=== PATIENT | female | born 1980 | race Caucasian/White ===

== ENCOUNTER 2017-11-01 19:29 | Emergency (ER) | payer OTHER ==
[~2017-11-01] VITALS: Ht 170.2 cm; Wt 63.5 kg
[~2017-11-01 19:29] MED LIST: LORA-259 PO; OXYC-128 PO; [UNRECOGNIZED DRUG - REMARK]
[2017-11-01 19:30] VITALS: BP 129/74
--- NOTE | 2017-11-01 21:56 | NUR ---
CALLED PT NAME X 3. PT LEFT PER ADMITTING.
== END 2017-11-01 21:56 | disposition left against medical advice (07) ==
LOC: ER 19:33
DX: R52 Pain, unspecified (principal); Z53.21 Procedure and treatment not carried out due to patient leaving prior to being seen by health care provider
CPT/HCPCS: A4606; Z7610

== ENCOUNTER 2018-11-18 21:56 | Emergency (ER) | payer OTHER ==
[~2018-11-18] VITALS: Ht 167.6 cm; Wt 65.8 kg
--- NOTE | 2018-11-18 22:10 | NUR ---
PT BIB [facility] IN CUSTODY FOR MEDICAL CLEARANCE, C/O RT BATISTA PAIN, REDNESS W/ CLEAR DRAINAGE TO OPEN WOUND X OVER 1 WK. AOX4, AMBULATORY W/ STEADY GAIT TO BED W/ RESP EVEN & UNLABORED, AFEBRILE W/ NO ACUTE DISTRESS NOTED. PT CALM & COOPERATIVE, HANDCUFFED RUE TO BED BY [employer] W/ [employer] AT BEDSIDE. PENDING FURTHER KWADWO PENNINGTON MD.
[2018-11-18] MEDS ORDERED: CEPHALEXIN MONOHYDRATE 500 MG CAPSULE PO ONE ×2 (22:56→23:00)
[2018-11-18] MEDS ORDERED: SULFAMETH/TRIMETH 800/160 MG 1 UDTAB TABLET PO ONE ×2 (22:56→23:00)
--- NOTE | 2018-11-18 23:02 | NUR ---
PT MEDICATED ORDERED W/ RT LEG WOUND CLEANED W/ NS, DRY NONADHERENT BANDAGE APPLIED. PT TOLERATED PROCEDURE WELL W/ NO ACUTE DISTRESS NOTED.
--- NOTE | 2018-11-18 23:08 | NUR ---
PT MEDICALLY CLEARED & OK TO BOOK BY MD. Patient discharged to [facility] Custody in stable condition. Written and verbal after care instructions along w/ prescriptions given. Patient verbalizes understanding of instruction.
[2018-11-18 23:09] VITALS: BP 136/87
== END 2018-11-18 23:10 ==
LOC: ER 22:04
DX: L03.115 Cellulitis of right lower limb (principal); F41.9 Anxiety disorder, unspecified; Z98.890 Other specified postprocedural states; Z79.899 Other long term (current) drug therapy

== ENCOUNTER 2019-04-22 13:57 | Emergency (ER) | payer MEDICAID, OTHER ==
[~2019-04-22] VITALS: Ht 170.2 cm; Wt 66.2 kg
--- NOTE | 2019-04-22 14:16 | NUR ---
CALLED TO TRIAGE,NO ANSWER
--- NOTE | 2019-04-22 15:15 | NUR ---
called for triage not in the waiting room
[2019-04-22] MEDS ORDERED: KETOROLAC TROMETHAMINE INJ 60 MG/2 ML VIAL IM ONE (15:30)
[2019-04-22 16:02] LABS: APPEARANCE,URINE Clear (CLEAR); BILIRUBIN,URINE Negative (NEGATIVE); BLOOD, URINE Moderate Ery/uL (NEGATIVE); COLOR,URINE Yellow (YELLOW); KETONES,URINE Negative (NEGATIVE); LEUKOCYTE ESTERASE ,URINE Large (NEGATIVE); NITRITE, URINE Negative (NEGATIVE); PROTEIN,URINE Negative (NEGATIVE); UGLUCOSE Negative (NEGATIVE); UROBILINOGEN,URINE 0.2 EU/dL (0.2)
[2019-04-22] MEDS ORDERED: KETOROLAC TROMETHAMINE 15 MG/ML VIAL ONE (16:06)
[2019-04-22 17:11] LABS: BACTERIA,URINE Few /HPF (None Seen); SQUAMOUS EPITHELIAL CELL,UR Moderate /HPF (None Seen); URINE AMORPHOUS URATE Few /HPF (None Seen); WBC,URINE TOO NUMEROUS TO COUN /HPF (0-3)
[2019-04-22] MEDS ORDERED: CEPHALEXIN MONOHYDRATE 500 MG CAPSULE PO ONE ×2 (17:29→17:30)
[2019-04-22 17:33] VITALS: BP 130/75
== END 2019-04-22 17:33 | disposition home or self-care (01) ==
LOC: ER 13:59
DX: N39.0 Urinary tract infection, site not specified (principal); G40.909 Epilepsy, unspecified, not intractable, without status epilepticus; F41.9 Anxiety disorder, unspecified; Z98.890 Other specified postprocedural states; Z79.899 Other long term (current) drug therapy
CPT/HCPCS: 81001; 84703; 87077; 87086; 87186; 96372; 99283; J1885; 81000-TC